=== PATIENT | female | born 1970 | race African-American/Black ===

== ENCOUNTER 2017-09-27 08:47 | Emergency (ER) | payer OTHER ==
[~2017-09-27] VITALS: Ht 162.6 cm; Wt 72.2 kg
[2017-09-27 08:54] VITALS: BP 152/109
== END 2017-09-27 10:04 | disposition home or self-care (01) ==
LOC: ED 08:47
DX: M25.531 Pain in right wrist (principal); Z91.018 Allergy to other foods

== ENCOUNTER 2017-09-30 16:24 | Emergency (ER) | payer OTHER ==
[~2017-09-30] VITALS: Ht 162.6 cm; Wt 72.1 kg
[2017-09-30 16:31] VITALS: Ht 162.6 cm; Wt 72.1 kg
[2017-09-30 17:58] VITALS: BP 166/98
== END 2017-09-30 17:58 | disposition home or self-care (01) ==
LOC: ED 16:24
DX: M77.9 Enthesopathy, unspecified (principal); Z91.018 Allergy to other foods
CPT/HCPCS: J7512

== ENCOUNTER 2017-10-22 12:42 | Emergency (ER) | payer OTHER ==
[~2017-10-22] VITALS: Ht 162.6 cm; Wt 74.4 kg
[2017-10-22 12:55] VITALS: BP 139/92; Ht 162.6 cm; Wt 74.4 kg
== END 2017-10-22 14:17 | disposition home or self-care (01) ==
LOC: ED 12:42
DX: S66.912A Strain of unspecified muscle, fascia and tendon at wrist and hand level, left hand, initial encounter (principal); X58.XXXA Exposure to other specified factors, initial encounter; Y93.89 Activity, other specified; Y92.89 Other specified places as the place of occurrence of the external cause; Y99.8 Other external cause status

== ENCOUNTER 2017-10-28 11:45 | Emergency (ER) | payer OTHER ==
[~2017-10-28] VITALS: Ht 162.6 cm; Wt 74.8 kg
[2017-10-28 11:49] VITALS: BP 143/84; Ht 162.6 cm; Wt 74.8 kg
== END 2017-10-28 12:57 | disposition home or self-care (01) ==
LOC: ED 11:45
DX: M25.531 Pain in right wrist (principal); Z91.018 Allergy to other foods

== ENCOUNTER 2018-03-15 18:43 | Emergency (ER) | payer MEDICAID ==
[~2018-03-15] VITALS: Ht 162.6 cm; Wt 73.0 kg
[2018-03-15 18:58] VITALS: Ht 162.6 cm; Wt 73.0 kg
[2018-03-15 19:56] LABS: BASOPHIL % 0.2 % (0-2); PLATELET COUNT 357 x10^3mcL (130-400); RED CELL DISTRIBUTION WIDTH 11.5 % (11.5-14.5)
[2018-03-15 20:06] LABS: CALCIUM 9.1 mg/dL (8.5-10.1); CARBON DIOXIDE 25.2 mmol/L (21-32); CHLORIDE SERUM 103 mmol/L (98-107); CREATININE SERUM 0.8 mg/dL (0.6-1.0); GFR1 > 60 mL/min; GLUCOSE SERUM 122 mg/dL (74-106); POTASSIUM SERUM 4.1 mmol/L (3.5-5.1); SODIUM SERUM 136 mmol/L (136-145)
[2018-03-15 20:11] LABS: ALBUMIN 3.8 g/dL (3.4-5.0); ALKALINE PHOSPHATASE 104 U/L (46-116); ALT/SGPT 25 U/L (14-59); AST/SGOT 12 U/L (15-37); BILIRUBIN TOTAL 0.54 mg/dL (0.20-1.00); LIPASE 81 IU/L (73-393); TOTAL PROTEIN, SERUM 8.1 g/dL (6.4-8.2)
[2018-03-16 03:08] VITALS: BP 136/97
== END 2018-03-16 03:08 | disposition home or self-care (01) ==
LOC: ED 18:43
PROVIDERS: Emergency Medicine
DX: R10.13 Epigastric pain (principal); R19.7 Diarrhea, unspecified; R11.10 Vomiting, unspecified; N83.202 Unspecified ovarian cyst, left side; Z98.890 Other specified postprocedural states
CPT/HCPCS: 87046; 87046-59; J0500; J2405; J3010; J7030

== ENCOUNTER 2018-04-20 07:58 | Emergency (ER) | payer MEDICAID ==
[~2018-04-20] VITALS: Ht 162.6 cm; Wt 74.8 kg
[2018-04-20 08:01] VITALS: Ht 162.6 cm; Wt 74.8 kg
[2018-04-20 09:29] LABS: BASOPHIL % 0.7 % (0-2); PLATELET COUNT 331 x10^3mcL (130-400); RED CELL DISTRIBUTION WIDTH 12.5 % (11.5-14.5)
[2018-04-20 09:35] LABS: CALCIUM 9.4 mg/dL (8.5-10.1); CARBON DIOXIDE 30.1 mmol/L (21-32); CHLORIDE SERUM 103 mmol/L (98-107); CREATININE SERUM 0.8 mg/dL (0.6-1.0); GFR1 > 60 mL/min; GLUCOSE SERUM 86 mg/dL (74-106); SODIUM SERUM 137 mmol/L (136-145)
[2018-04-20 09:42] LABS: ALBUMIN 3.8 g/dL (3.4-5.0); ALKALINE PHOSPHATASE 99 U/L (46-116); ALT/SGPT 26 U/L (14-59); AMYLASE 51 U/L (25-115); AST/SGOT 17 U/L (15-37); BILIRUBIN TOTAL 0.6 mg/dL (0.20-1.00); LIPASE 76 IU/L (73-393); TOTAL PROTEIN, SERUM 7.5 g/dL (6.4-8.2)
[2018-04-20 09:44] LABS: CHOLESTEROL 203 mg/dL (<200)
[2018-04-20 10:57] LABS: microscopic required? YES; urine erythrocyte NEGATIVE (NEGATIVE)
[2018-04-20 11:07] LABS: AMPHETAMINE QUAL UR NONE DETECTED (See below)
[2018-04-20 13:33] VITALS: BP 132/89
== END 2018-04-20 13:33 | disposition home or self-care (01) ==
LOC: ED 07:58
PROVIDERS: Emergency Medicine
DX: R07.81 Pleurodynia (principal); F17.210 Nicotine dependence, cigarettes, uncomplicated; Z71.6 Tobacco abuse counseling; Z88.6 Allergy status to analgesic agent; Z91.018 Allergy to other foods
CPT/HCPCS: 36600; 85378; 99406; J1100; J1885; J7030